=== PATIENT | male | born 1995 | race Caucasian/White ===

== ENCOUNTER 2025-02-27 22:25 | Emergency (ER) | payer BC ==
[~2025-02-27] VITALS: Ht 175.3 cm; Wt 61.2 kg
[2025-02-27 23:27] VITALS: BP 136/82; TEMP 98.5; O2SAT 97
== END 2025-02-27 23:27 | disposition left against medical advice (07) ==
LOC: ER 22:28
DX: R07.89 Other chest pain (principal)

== ENCOUNTER 2025-03-11 17:07 | Emergency (ER) | payer BC ==
[~2025-03-11] VITALS: Ht 177.8 cm; Wt 64.9 kg
[2025-03-11 17:15] VITALS: BP 147/84; TEMP 98
[2025-03-11 18:10] LABS: CALCIUM, SERUM 8.7 mg/dL (8.5-10.1); CREATININE 0.6 mg/dL (0.6-1.3); SODIUM SERUM 139.0 mmol/L (136-145); UREA NITROGEN, BLOOD 17.0 mg/dL (7-18)
[2025-03-11] MEDS ORDERED: AMOX-430 PO (18:22)
[2025-03-11 18:29] VITALS: O2SAT 98
== END 2025-03-11 18:29 | disposition home or self-care (01) ==
LOC: ER 17:08
DX: R07.9 Chest pain, unspecified (principal); F15.10 Other stimulant abuse, uncomplicated
CPT/HCPCS: 36415; 71045-TC; 80048-TC